=== PATIENT | male | born 1940 | race Caucasian/White ===

== ENCOUNTER 2022-02-11 15:31 | Outpatient (REF) | payer MEDICARE, SELFPAY ==
[2022-02-11 20:39] LABS: Anion Gap 5.2 mmol/L (3-11); BUN 28 mg/dL (7-18); CO2 30.8 mmol/L (21.0-32.0); CREATININE 1.3 mg/dL (0.70-1.30); Chloride 105 mmol/L (98-107); Estimated GFR 53.12 (mL/min/1.73m2); Glucose 86 mg/dL (74-106); Potassium 5.3 mmol/L (3.5-5.1); Sodium 141 mmol/L (136-145)
== END 2022-02-11 15:32 | disposition home or self-care (01) ==
LOC: NCHCN 15:31
PROVIDERS: Visit Provider Physician Assistant
DX: I10 Essential (primary) hypertension (principal)
CPT/HCPCS: 80048

== ENCOUNTER 2023-04-14 18:40 | Outpatient (REF) | payer MEDICARE, SELFPAY ==
[2023-04-14 19:22] LABS: ALT 27 U/L (16-63); AST 20 U/L (15-37); Albumin 3.2 g/dL (3.4-5.0); Alkaline Phosphatase 111 U/L (46-116); Anion Gap 5.5 mmol/L (3-11); BUN 33 mg/dL (7-18); Bilirubin, Total 0.3 mg/dL (0.2-1.0); CO2 29.5 mmol/L (21.0-32.0); CREATININE 1.5 mg/dL (0.70-1.30); Chloride 108 mmol/L (98-107); Estimated GFR 46.48 (mL/min/1.73m2); Glucose 98 mg/dL (74-106); Sodium 143 mmol/L (136-145); Total Protein 6.2 g/dL (6.4-8.2)
== END 2023-04-14 18:41 | disposition home or self-care (01) ==
LOC: NCHCN 18:40
PROVIDERS: Visit Provider Physician Assistant
DX: I10 Essential (primary) hypertension (principal); E78.5 Hyperlipidemia, unspecified
CPT/HCPCS: 80053

== ENCOUNTER 2023-11-25 17:31 | Outpatient (REF) | payer MEDICARE, SELFPAY ==
[2023-11-25 18:50] LABS: CREATININE 1.7 mg/dL (0.70-1.30)
== END 2023-11-25 17:32 | disposition home or self-care (01) ==
LOC: NCHCN 17:31
PROVIDERS: Visit Provider Physician Assistant
DX: R93.3 Abnormal findings on diagnostic imaging of other parts of digestive tract (principal)
CPT/HCPCS: 82565

== ENCOUNTER 2024-05-29 13:40 | Outpatient (REF) | payer MEDICARE, SELFPAY ==
[2024-05-29 19:28] LABS: ALT 26 U/L (16-63); AST 28 U/L (15-37); Albumin 3.6 g/dL (3.4-5.0); Alkaline Phosphatase 110 U/L (46-116); Anion Gap 1.1 mmol/L (3-11); BUN 30 mg/dL (7-18); CO2 30.9 mmol/L (21.0-32.0); CREATININE 1.6 mg/dL (0.70-1.30); Calcium 9.1 mg/dL (8.5-10.1); Chloride 105 mmol/L (98-107); Estimated GFR 42.75 (mL/min/1.73m2); Glucose 62 mg/dL (74-106); LDL CHOLESTEROL 65 mg/dL (<100); Potassium 5.2 mmol/L (3.5-5.1); Sodium 137 mmol/L (136-145); Total Protein 6.9 g/dL (6.4-8.2)
== END 2024-05-29 13:41 | disposition home or self-care (01) ==
LOC: NCHCN 13:40
PROVIDERS: Visit Provider Physician Assistant
DX: E78.5 Hyperlipidemia, unspecified (principal)
CPT/HCPCS: 80053; 83721

== ENCOUNTER 2024-10-24 16:38 | Outpatient (REF) | payer MEDICARE, SELFPAY ==
[2024-10-24 21:04] LABS: Absolute Basophil Count 0.02 10^3/uL (0.0-0.2); Absolute Eosinophil Count 0.02 10^3/uL (0.0-0.7); HGB 14.6 g/dL (13.5-17.5); MCV 89 fL (80-95); RDW-SD 50.8 fL
[2024-10-24 21:05] LABS: Abs Immature Grans 0.02 10^3/uL (0.0-0.06); Absolute Lymphocyte Count 1.41 10^3/uL (1.2-3.4); Absolute Monocyte Count 0.67 10^3/uL (0.1-0.8); Basophils % 0.3 %; Eosinophils % 0.3 %; HCT 42.9 % (40.0-50.0); Immature Grans % 0.3 %; Lymphocytes % 24.4 %; MCH 30.1 pg (27.0-33.0); MPV 14.4 fL (8.0-11.0); Monocytes % 11.6 %; Neutrophils % 63.1 %; Platelet Count 111 10^3/uL (130-400); RBC 4.85 10^6/uL (4.36-5.78); RDW 15.6 % (11.8-14.1); WBC 5.77 10^3/uL (4.4-10.8)
[2024-10-24 21:09] LABS: Absolute Neutrophil Count 3.64 10^3/uL (1.2-6.7)
[2024-10-24 21:53] LABS: ALT 533 U/L (16-63); AST 699 U/L (15-37); Amylase 36 U/L (25-115); Anion Gap 9.1 mmol/L (3-11); BUN 28 mg/dL (7-18); Bilirubin, Total 10.2 mg/dL (0.2-1.0); CO2 26.9 mmol/L (21.0-32.0); CREATININE 1.8 mg/dL (0.70-1.30); Calcium 9.1 mg/dL (8.5-10.1); Chloride 104 mmol/L (98-107); Estimated GFR 37.12 (mL/min/1.73m2); Glucose 120 mg/dL (74-106); Lipase 21 U/L (<78); Potassium 4.4 mmol/L (3.5-5.1); Sodium 140 mmol/L (136-145); Total Protein 6.4 g/dL (6.4-8.2)
[2024-10-24 21:54] LABS: Alkaline Phosphatase 1987 U/L (46-116)
== END 2024-10-24 16:39 | disposition home or self-care (01) ==
LOC: NCHCN 16:38
PROVIDERS: Visit Provider Physician Assistant
DX: R10.9 Unspecified abdominal pain (principal)
CPT/HCPCS: 80053; 83690; 82150; 85025

== ENCOUNTER 2024-11-15 16:16 | Outpatient (CLI) | payer MEDICARE, SELFPAY ==
[2024-11-15 15:46] LABS: Abs Immature Grans 0.01 10^3/uL (0.0-0.06); Absolute Basophil Count 0.05 10^3/uL (0.0-0.2); Absolute Eosinophil Count 0.09 10^3/uL (0.0-0.7); Absolute Lymphocyte Count 2.01 10^3/uL (1.2-3.4); Absolute Monocyte Count 0.51 10^3/uL (0.1-0.8); Absolute Neutrophil Count 2.88 10^3/uL (1.2-6.7); Basophils % 0.9 %; Eosinophils % 1.6 %; HGB 11.8 g/dL (13.5-17.5); Immature Grans % 0.2 %; Lymphocytes % 36.2 %; MCH 30.9 pg (27.0-33.0); MCHC 32.8 % (32.0-36.0); MCV 94 fL (80-95); MPV 12.4 fL (8.0-11.0); Monocytes % 9.2 %; Neutrophils % 51.9 %; Platelet Count 150 10^3/uL (130-400); RBC 3.82 10^6/uL (4.36-5.78); RDW 16.6 % (11.8-14.1); RDW-SD 57.3 fL; WBC 5.55 10^3/uL (4.4-10.8)
[2024-11-15 16:09] LABS: ALT 41 U/L (16-63); AST 28 U/L (15-37); Albumin 2.9 g/dL (3.4-5.0); Alkaline Phosphatase 535 U/L (46-116); Anion Gap 7.2 mmol/L (3-11); BUN 43 mg/dL (7-18); Bilirubin, Total 3.2 mg/dL (0.2-1.0); CO2 26.8 mmol/L (21.0-32.0); CREATININE 1.8 mg/dL (0.70-1.30); Calcium 8.9 mg/dL (8.5-10.1); Chloride 106 mmol/L (98-107); Estimated GFR 37.12 (mL/min/1.73m2); Glucose 117 mg/dL (74-106); Potassium 4.7 mmol/L (3.5-5.1); Sodium 140 mmol/L (136-145); Total Protein 6.4 g/dL (6.4-8.2)
[2024-11-16 15:36] LABS: CA 19-9 839 U/mL (<35)
== END 2024-11-15 16:17 | disposition home or self-care (01) ==
LOC: LBO 16:17
PROVIDERS: Visit Provider Internal Medicine Hematology & Oncology
DX: C25.0 Malignant neoplasm of head of pancreas (principal)
CPT/HCPCS: 36415; 80053; 85025; 86301